=== PATIENT | female | born 1955 | race Caucasian/White ===

== ENCOUNTER 2016-12-29 05:10 | Inpatient (IN) | payer MEDICARE ==
[~2016-12-29] VITALS: Ht 172.7 cm; Wt 111.6 kg
[2016-12-29] VITALS (14 sets, daily range): BP systolic 114–160; BP diastolic 57–91
[2016-12-29] MEDS ORDERED: CEFAZOLIN SODIUM/DEXTROSE,ISO 50 ML IV ONE (05:18)
[2016-12-29] MEDS ORDERED: IV SET PRIMARY 1 EA INFUS.SET MC ONE (05:19)
[2016-12-29] MEDS ORDERED: IV LR 1000 ML 1,000 ML ONE (05:19)
[2016-12-29] MEDS ORDERED: SECONDARY IV SET 1 EA INFUS.SET MC ONE (05:19)
[2016-12-29] MEDS ORDERED: OXYC-34 PO (05:52)
[2016-12-29] MEDS ORDERED: MORP30TA59 PO (05:52)
[2016-12-29] MEDS ORDERED: OMEP20TA68 PO (05:52)
[2016-12-29] MEDS ORDERED: METO-295 PO (05:52)
[2016-12-29] MEDS ORDERED: GABA-534 PO (05:52)
[2016-12-29] MEDS ORDERED: CARI350T27 PO (05:52)
[2016-12-29] MEDS ORDERED: KETOROLAC TROMETHAMINE INJ 30 MG/ML VIAL ONE (06:20)
[2016-12-29] MEDS ORDERED: BUPIVACAINE MPF 0.5% W/EPI INJ 30 ML VIAL ONE (06:21)
[2016-12-29] MEDS ORDERED: BACITRACIN 50000 UNITS/VIAL ONE (06:21)
[2016-12-29] MEDS ORDERED: MORPHINE SULFATE/PF 10 MG/10ML (1MG/ML) AMPUL ONE (06:30)
[2016-12-29] MEDS ORDERED: SUCCINYLCHOLINE CHLORIDE 20 MG/ML VIAL ONE (06:30)
[2016-12-29] MEDS ORDERED: FENTANYL PF 100MCG/2ML AMPUL ONE ×4 (07:05→09:18)
[2016-12-29] MEDS ORDERED: TRANEXAMIC ACID 3,000 MG in SODIUM CHLORIDE IRRIG SOLUTION 70 ML IR ONE (07:30)
[2016-12-29] MEDS ORDERED: HYDROMORPHONE INJ 2 MG/ML DISP.SYRIN ONE (08:45)
[2016-12-29] MEDS ORDERED: SENNOSIDES 8.6 MG TABLET PO PRN (09:30)
[2016-12-29] MEDS ORDERED: ONDANSETRON HCL/PF 4 MG/2 ML VIAL IVP PRN (09:30)
[2016-12-29] MEDS ORDERED: BISACODYL SUPP (10 MG) 10 MG/SUPP.RECT SUPP.RECT RC PRN (09:30)
[2016-12-29] MEDS ORDERED: DOCUSATE SODIUM 250 MG CAPSULE PO PRN (09:30)
[2016-12-29] MEDS ORDERED: ZOLPIDEM TARTRATE 5 MG TABLET PO PRN ×2 (09:30→19:30)
[2016-12-29] MEDS ORDERED: ACETAMINOPHEN 325 MG TABLET PO PRN (09:30)
[2016-12-29] MEDS ORDERED: NALOXONE HCL 0.4 MG/ML AMPUL IV PRN ×2 (09:30→11:30)
[2016-12-29] MEDS ORDERED: HYDROCODONE/APAP 5/325MG 1 EACH TABLET PO PRN (09:30)
[2016-12-29] MEDS ORDERED: HYDROMORPHONE MDV 30 MG in IV NS 0.9% 15 ML, PCA TOTAL VOLUME 1 BAG IV PRN ×6 (09:30→11:30)
--- NOTE | 2016-12-29 10:40 | NUR ---
MS RN NOTES PT ARRIVED TO FLOOR FROM OR. PT CURRENTLY IN 10 PAIN. PT IS IN STABLE CONDITION. NO SOB NOTED. IBARRA CATHETER IS DRAINING CLEAR YELLOW URINE. IV IS INTACT. WILL SET UP DOG AND CAT FOOD COOK AND PROVIDE PAIN MANAGEMENT. WILL CONTINUE TO MONITOR PT THROUGHOUT SHIFT.
[2016-12-29] MEDS ORDERED: IV SET PRIMARY PUMP SET 1 EA INFUS.SET MC ONE (10:56)
[2016-12-29] MEDS: IV D5/0.45 NACL 1,000 ML IV PRN ×2 (11:14→20:09)
[2016-12-29] MEDS ORDERED: HYDROMORPHONE INJ 2 MG/ML DISP.SYRIN SQ PRN (11:30)
[2016-12-29] MEDS ORDERED: CLONIDINE HCL 0.1 MG TABLET PO PRN (11:30)
[2016-12-29] MEDS ORDERED: MENTHOL/CETYLPYRD (CEPACOL) 1 LOZ LOZENGE MM PRN (11:30)
[2016-12-29] MEDS ORDERED: MAGNESIUM HYDROXIDE 30 ML UDC PO PRN (11:30)
[2016-12-29] MEDS ORDERED: diphenhydrAMINE HCL 25 MG CAPSULE PO PRN (11:30)
--- NOTE | 2016-12-29 11:30 | NUR ---
MS RN NOTES PT NOT FEELING ANY PAIN RELIEF WITH THE VARNISHER PLASTICOATER PUMP. DR. ALBRECHT MADE AWARE AND INFORMED. ORDERED DILAUDID 1.5 MG SUBQ Q3H. WILL CARRY OUT ORDERS AND CONTINUE TO MONITOR PATIENT AND PROVIDE PAIN MANAGEMENT.
[2016-12-29] MEDS ORDERED: MAG HYDROX/AL HYDROX/SIMETH 30 ML UDC PO PRN (12:00)
[2016-12-29] MEDS ORDERED: PROMETHAZINE HCL 25 MG/ML AMPUL IM PRN (12:00)
[2016-12-29] MEDS ORDERED: DULO30CA2 PO (12:34)
[2016-12-29] MEDS ORDERED: CARI350T PO (12:34)
[2016-12-29] MEDS: MORPHINE SULFATE SR 30 MG TABLET.SA PO SCH ×2 (13:23→21:12)
[2016-12-29] MEDS: GABAPENTIN 300 MG CAPSULE PO SCH ×2 (13:23→16:47)
[2016-12-29] MEDS: ANCEF 1 GM/50 ML D5W IV SCH ×4 (15:42→22:30)
[2016-12-29] MEDS: DOCUSATE SODIUM 100 MG CAPSULE PO SCH (16:47)
--- NOTE | 2016-12-29 19:05 | NUR ---
RN NOTE RECEIVED REPORT. PT AAOX4, NO S/S OF RESPIRATORY DISTRESS. C/O OF MINIMAL PAIN ON OPERATIVE SITE. R LEG DRESSING INTACT, RED FLUID NOTED ON DRESSING POSTERIOR RIGHT LEG. CONTACT ACID PLANT OPERATOR PUMP SETTINGS ACCURATE. IV INTACT AND PATENT. F/C DRAINING YELLOW FLUID. CALL LIGHT IN REACH WILL CONT TO MONITOR.
--- NOTE | 2016-12-29 19:07 | NUR ---
MS RN NOTES PT IS A/OX4. PT IS IN BED SITTING UP AND WATCHING TV. CPM MACHINE CURRENTLY OFF. PT STATES THAT HER PAIN IS CURRENTLY AT A 4/10. NO SOB OR ANY S/S OF DISTRESS NOTED. IBARRA CATHETER IS INTACT AND PATENT, DRAINING CLEAR YELLOW URINE. IV IS INTACT. SPINDLE CARVER RUNNING. ALL MEDICATIONS HAVE BEEN GIVEN AND ALL PATIENT NEEDS HAVE BEEN MET. CALL LIGHT WITHIN REACH. BED IS IN LOW LOCKED POSITION. WILL ENDORSE CARE TO PM SHIFT.
[2016-12-29] MEDS: PANTOPRAZOLE 40 MG TABLET.DR PO SCH (21:12)
[2016-12-29] MEDS: ASPIRIN 325 MG TABLET PO SCH (21:13)
[2016-12-29] MEDS: oxyCODONE IR immediate release 5 MG CAPSULE PO PRN (22:29)
--- NOTE | 2016-12-29 23:05 | NUR ---
RN NOTE PAGED MICHAEL MILLER IN REGARDS TO PT R KNEE DRESSING BEING SATURATED. AWAITING CALL BACK.
--- NOTE | 2016-12-29 23:58 | NUR ---
RN NOTE RECEIVED CALL BACK FROM MICHAEL MILLER. ORDERS TO REINFORCE DRESSING UNTIL TOMORROW MORNING. WILL APPLY ABDOMINAL DRESSING TO SITE WITH [employer] BANDAGE, PER .
[2016-12-30] MEDS: oxyCODONE IR immediate release 5 MG CAPSULE PO PRN ×3 (01:49→17:31)
[2016-12-30] MEDS ORDERED: IV SET PRIMARY PUMP SET 1 EA INFUS.SET MC ONE (04:27)
[2016-12-30] MEDS: MORPHINE SULFATE SR 30 MG TABLET.SA PO SCH ×3 (05:15→21:34)
--- NOTE | 2016-12-30 06:28 | NUR ---
RN NOTE NO SIGNIFICANT CHANGES OVERNIGHT. PT AAOX4, BREATHING NON-LABORED AND EVEN. PULSE OX MACHINE CONNECTED, SATTING WELL ON NC 2L. PAIN MANAGED WITH ACCORDION MAKER PUMP AND PRN'S T/O SHIFT. C/O OF PAIN 4/10 AT OPERATIVE SITE. RIGHT KNEE DRESSING INTACT, CLEAN, NO FURTHER BLEEDING NOTED SINCE [employer]AD[employer] BANDAGE WAS CHANGED AROUND 2300. ACCORDION MAKER PUMP SETTINGS ACCURATE. CALL LIGHT IN REACH, WILL F/U WITH DAY SHIFT FOR PRASHANTH.
[2016-12-30 08:00] VITALS: BP 106/61
[2016-12-30] MEDS: GABAPENTIN 300 MG CAPSULE PO SCH ×3 (08:05→17:31)
[2016-12-30] MEDS: DOCUSATE SODIUM 100 MG CAPSULE PO SCH ×2 (08:05→17:31)
[2016-12-30] MEDS: ASPIRIN 325 MG TABLET PO SCH ×2 (08:05→17:31)
[2016-12-30] MEDS: DULOXETINE HCL 30 MG CAPSULE.DR PO SCH (08:05)
--- NOTE | 2016-12-30 08:05 | NUR ---
m/s cigar machine feeder: notes c/o breakthrough pain 02/23, oxy ir 15mg po as ordered. instructed to call for assistance. will continue to monitor.
--- NOTE | 2016-12-30 09:05 | NUR ---
m/s receiving specialist: notes pt verbalized relief, stated, "it's a four right now." pt continue on wall man at 0.4mg given by pt activation. instructed to call for assistance. will continue to monitor.
[2016-12-30] MEDS: CARISOPRODOL 350 MG TABLET PO PRN (10:39)
--- NOTE | 2016-12-30 13:10 | NUR ---
m/s mica builder: pain specialist seen and examined by dr. nayak with order to d'c automotive exhaust emissions technician. bag is empty and removed as ordered with cn verifying med with no ml remaining. pt verbalized understanding and instructed to call for assistance. will continue to monitor.
--- NOTE | 2016-12-30 13:47 | NUR ---
m/s patient care provider: notes c/o 01/24 right knee pain, medicated with routine ms contin 90mg po as ordered. instructed to call for assistance. will continue to monitor.
--- NOTE | 2016-12-30 14:47 | NUR ---
M/S FORGE TENDER: NOTES PT SOUNDS ASLEEP AT THIS TIME WITH CALL LIGHT WITHIN REACH. NO S/S OF RESP. DISTRESS NOTED. WILL CONTINUE TO MONITOR.
--- NOTE | 2016-12-30 15:20 | NUR ---
m/s marketing information analyst: notes pt sleeping at interval with cpm machine on as tolerated.
[2016-12-30] MEDS: MAGNESIUM OXIDE 400 MG TABLET PO SCH ×2 (17:31→22:00)
--- NOTE | 2016-12-30 17:31 | NUR ---
m/s campground cleaning attendant: notes cpm machine removed for dinner. dinner served. c/o 10 right knee pain, medicated with morphine sulfate (ms contin) 90mg po as ordered. instructed to call for assistance. will continue to monitor.
--- NOTE | 2016-12-30 18:31 | NUR ---
M/S DRUM BARKER OPERATOR: NOTES PT IS ON THE PHONE WITH . VERBALIZED RELIEF OF PAIN. INSTRUCTED TO CALL FOR ASSISTANCE. WILL CONTINUE TO MONITOR.
--- NOTE | 2016-12-30 19:05 | NUR ---
M/Myrtle GOMEZ: NOTES DAUGHTER HERE TO OBSTETRICS NURSE PRACTITIONER THE PT. PT STILL GETTING READY WITH ASSISTANCE FROM CAREGIVER. Addendum: 12/30/16 at 1911 by DOMINIK RANDLE LVN ABOVE CHARTING ERROR, WRONG PT
--- NOTE | 2016-12-30 19:05 | NUR ---
m/s asphalt screed operator: notes report given to jose j (rn) for continuity of care.
--- NOTE | 2016-12-30 19:15 | NUR ---
MS/RN NOTES RECEIVED PT. LYING IN BED TALKING ON THE PHONE. PT. IS AWAKE, ALERT AND ORIENTED X4. BREATHING EVEN AND UNLABORED ON ROOM AIR. NO SOB, RESPIRATORY DISTRESS OR COMPLAINTS OF PAIN NOTED AT THIS TIME. PT. WITH LEFT FOREARM IV SALINE LOCK PRESENT, PATENT AND INTACT. PT. WITH IBARRA CATHETER PRESENT, PATENT AND INTACT DRAINING CLEAR KATHLEEN URINE. BED IN LOWEST POSITION, CALL LIGHT WITHIN REACH, SIDE RAILS UP X2, BED ALARM ON, WILL CONTINUE TO MONITOR.
--- NOTE | 2016-12-30 19:50 | NUR ---
MS/RN NOTES PT. REQUESTING TO BE PLACED BACK ON THE CPM MACHINE. PER PT. SHE HAD THE CPM ON FOR 2 HOURS TODAY. PLACED PT. CPM MACHINE ON PT. RIGHT LEG. PT. TOLERATING WELL. PT. CALL LIGHT WITHIN REACH. WILL CONTINUE TO MONITOR.
[2016-12-30 20:16] VITALS: BP 108/59
[2016-12-30] MEDS: PANTOPRAZOLE 40 MG TABLET.DR PO SCH (21:33)
--- NOTE | 2016-12-30 22:02 | NUR ---
MS/RN NOTES PT. 2200 MAG-OXIDE MEDICATION NOT ADMINISTERED TO PT. PT. RECEIVED MEDICATION AT [address] [facility] NURSE. WILL CONTINUE TO MONITOR.
[2016-12-31] MEDS: CARISOPRODOL 350 MG TABLET PO PRN (01:51)
--- NOTE | 2016-12-31 07:15 | NUR ---
MS/RN NOTES PT. LYING IN BED RESTING. BREATHING EVEN AND UNLABORED ON ROOM AIR. NO SOB, RESPIRATORY DISTRESS OR COMPLAINTS OF PAIN NOTED AT THIS TIME. PT. WITH LEFT FOREARM IV SALINE LOCK PRESENT, PATENT AND INTACT. PT. WITH IBARRA CATHETER PRESENT, PATENT AND INTACT. EMPTIED 1700 ML CLEAR KATHLEEN URINE. ALL PT. NEEDS MET. BED IN LOWEST POSITION, CALL LIGHT WITHIN REACH, SIDE RAILS UP X2, BED ALARM ON, WILL ENDORSE TO DAYSHIFT NURSE FOR CONTINUITY OF CARE.
[2016-12-31] MEDS: MORPHINE SULFATE SR 30 MG TABLET.SA PO SCH ×2 (07:17→14:08)
[2016-12-31 08:00] VITALS: BP 126/73
--- NOTE | 2016-12-31 08:29 | NUR ---
RN MS NOTES PATIENT IN BED AWAKE A/O X 4 NO DISTRESS NOTES, NO SOB OR C/O PAIN. I LINE LINE PATENT, IBARRA CATH PATENT AND DRAINING WELL. ALL NEEDS MET, KEPT CLEAN AND DRY.
[2016-12-31] MEDS: GABAPENTIN 300 MG CAPSULE PO SCH ×2 (09:15→14:06)
[2016-12-31] MEDS: DOCUSATE SODIUM 100 MG CAPSULE PO SCH (09:15)
[2016-12-31] MEDS: DULOXETINE HCL 30 MG CAPSULE.DR PO SCH (09:16)
[2016-12-31] MEDS: ASPIRIN 325 MG TABLET PO SCH (09:16)
[2016-12-31] MEDS: oxyCODONE IR immediate release 5 MG CAPSULE PO PRN ×2 (10:24→16:11)
--- NOTE | 2016-12-31 14:49 | NUR ---
RN MS NOTES RECEIVED ORDER FOR DR REID, TO D/C TO [facility]. RETAIL SERVICE REPRESENTATIVE DISCUSSED PLAN WITH PATIENT AND HER , THEY BOTH AGREED TO PLAN. PER DR. SALDANA, OK FOR NURSE TO CHANGE DRESSING.
[2016-12-31 16:00] VITALS: BP 113/60
--- NOTE | 2016-12-31 16:18 | NUR ---
RN MS CLOSING NOTES. PATIENT LEFT ON A GURNEY, ACCOMPANIED BY HER AND TWO POWERHOUSE OPERATOR. PATIENT IN NO ACUTE DISTRESS, DENIES SOB.VS SIGNS STABLE, BP143/60 HR93 RR20 T 98.4 02 92% ON RA. PATIENT STATED PAIN LEVEL 4/10, GIVEN OXYCODONE 15MG PRIOR TO LEAVING. IBARRA CATH REMOVED, WITH OUTPUT OF 900. URINE CLEAR, NO SEDIMENT NOTED. RESIDENT WITH NO IV LINE. ALL NEEDS MET, KEPT CLEAN AND DRY, ALL BELONGINGS TAKEN BY PATIENT.
== END 2016-12-31 16:30 | DRG 470 ==
LOC: DS 05:10 → MED 10:20
PROVIDERS: ADMIT Specialist; ATTEND Specialist
PROC: 0SRC0J9 Replacement of Right Knee Joint with Synthetic Substitute, Cemented, Open Approach (ICD-10-PCS; principal; 2016-12-29 06:30)
DX: M17.11 Unilateral primary osteoarthritis, right knee (principal); F11.20 Opioid dependence, uncomplicated; M79.7 Fibromyalgia; F32.9 Major depressive disorder, single episode, unspecified; E66.01 Morbid (severe) obesity due to excess calories; K21.9 Gastro-esophageal reflux disease without esophagitis; K59.09 Other constipation; K64.9 Unspecified hemorrhoids; G89.29 Other chronic pain; F41.9 Anxiety disorder, unspecified; Z68.37 Body mass index [BMI] 37.0-37.9, adult; M54.2 Cervicalgia; D49.0 Neoplasm of unspecified behavior of digestive system
CPT/HCPCS: 36415; 86850-TC; 86921-TC; 87081-TC; 88305-TC; 88311-TC; 97001-TC; 97110-TC; 97116-TC; 97530-TC; 97760-TC; A4216; A4217; A4606; A6253; A6402; C1713; J0330; J0690; J1100; J1170; J1885; J2001; J2274; J2405; J2704; J3010; J3490; J7060; J7120; L1830